=== PATIENT | male | born 1995 | race Two or more races ===

== ENCOUNTER 2021-04-22 14:09 | Emergency (ER) | payer MEDICAID ==
[~2021-04-22] VITALS: Ht 185.4 cm; Wt 88.5 kg
[2021-04-22 15:49] VITALS: BP 162/91
[2021-04-22] MEDS ORDERED: PHENYLEPHRINE IV 250 ML IV ONE (18:48)
== END 2021-04-22 17:26 | disposition home or self-care (01) ==
LOC: ER 14:09
DX: J20.9 Acute bronchitis, unspecified (principal); J04.0 Acute laryngitis; L72.9 Follicular cyst of the skin and subcutaneous tissue, unspecified; F17.210 Nicotine dependence, cigarettes, uncomplicated; Z20.822 Contact with and (suspected) exposure to COVID-19
CPT/HCPCS: 36415; 71046; 87426; 99284; J2370

== ENCOUNTER 2023-08-11 09:48 | Emergency (ER) | payer MEDICAID ==
[~2023-08-11] VITALS: Ht 185.4 cm; Wt 91.0 kg
[2023-08-11 13:28] VITALS: BP 136/84; PULSE 98; RESP 14; TEMP 96.3; O2SAT 97
[2023-08-11] MEDS ORDERED: HYDROcodone-ACET 5/325MG TAB PO ONE (13:45)
[2023-08-11] MEDS ORDERED: MELO7.5T7 PO (15:44)
== END 2023-08-11 15:59 | disposition home or self-care (01) ==
LOC: ER 09:48
DX: S83.8X1A Sprain of other specified parts of right knee, initial encounter (principal); F17.210 Nicotine dependence, cigarettes, uncomplicated; W18.39XA Other fall on same level, initial encounter; Y93.89 Activity, other specified; Y92.89 Other specified places as the place of occurrence of the external cause; Y99.8 Other external cause status
CPT/HCPCS: 73562; 73700